=== PATIENT | male | born 1970 | race Caucasian/White ===

== ENCOUNTER 2019-10-29 03:14 | Emergency (ER) | payer OTHER ==
[~2019-10-29] VITALS: Ht 193 cm; Wt 117.9 kg
[~2019-10-29 03:14] MED LIST: ACYC800 PO; AMOCLA875 PO; AMOX1XR PO; Bactrim Ds Tab1 EACH PO; Bactroban22 GM TOP; CEPH500 PO; CIPR500 PO; CRUTCH2 USE; CYCL10 PO; HYDACE10B PO; HYDACE5 PO; HYDMOR2 PO; IBUP800; IBUP800 PO; LORA2 PO; METPRE4DP PO; NAPR500 PO; NAPR550 PO; Norco 5-325 Ta1 EACH PO; ONDA4 PO; OXYACE10 PO; OXYACE5T PO; OXYC5 PO; PRED10 PO; PROM25 PO; RXCLIN PO; RXOXYACE PO; SENN187 PO; SULTRIDS PO; TOBDEXOPSU OP
[2019-10-29] MEDS ORDERED: DEXT30SU PO (10:33)
[2019-10-29] MEDS ORDERED: Ventolin/Prove6.7 GM INH (10:33)
[2019-10-29] MEDS ORDERED: Zithromax250 MG PO (10:33)
== END 2019-10-29 03:20 | disposition left against medical advice (07) ==
LOC: ER 03:14
DX: R41.82 Altered mental status, unspecified (principal); G51.0 Bell's palsy; F17.200 Nicotine dependence, unspecified, uncomplicated
CPT/HCPCS: 99283

== ENCOUNTER 2021-06-01 23:30 | Emergency (ER) | payer OTHER ==
[~2021-06-01] VITALS: Ht 193 cm; Wt 99.8 kg
[~2021-06-01 23:30] MED LIST changes: +DEXT30SU PO; +Ventolin/Prove6.7 GM INH; +Zithromax250 MG PO
== END 2021-06-02 | disposition home or self-care (01) ==
LOC: ER 23:30
DX: U07.1 COVID-19 (principal); F17.200 Nicotine dependence, unspecified, uncomplicated
CPT/HCPCS: 99283

== ENCOUNTER 2024-02-15 13:44 | Emergency (ER) | payer OTHER ==
[~2024-02-15] VITALS: Ht 193 cm; Wt 136.1 kg
[2024-02-15 18:18] VITALS: BP 136/78
== END 2024-02-15 18:42 | disposition home or self-care (01) ==
LOC: ER 13:44
DX: L03.113 Cellulitis of right upper limb (principal); F17.200 Nicotine dependence, unspecified, uncomplicated

== ENCOUNTER 2024-02-17 10:19 | Emergency (ER) | payer OTHER ==
[~2024-02-17] VITALS: Ht 193 cm; Wt 136.1 kg
[2024-02-17 14:00] VITALS: BP 118/85
== END 2024-02-17 14:21 | disposition home or self-care (01) ==
LOC: ER 10:19
DX: L03.113 Cellulitis of right upper limb (principal); R07.89 Other chest pain; M19.90 Unspecified osteoarthritis, unspecified site; F17.200 Nicotine dependence, unspecified, uncomplicated